=== PATIENT | female | born 1980 | race Caucasian/White ===

== ENCOUNTER 2016-09-18 03:51 | Emergency (ER) | payer OTHER ==
[~2016-09-18] VITALS: Ht 170.2 cm; Wt 104.3 kg
[2016-09-18 03:57] VITALS: BP 152/83
[2016-09-18] MEDS ORDERED: PROAIR HFA8.5 GM INH (04:14)
[2016-09-18] MEDS ORDERED: PRED15SO3 PO (04:14)
--- NOTE | 2016-09-18 04:14 | PHYS DOC ---
Past Medical History Past Medical History: Bronchitis, Pneumonia, Other Additional Past Medical Histor: INTESTINES BLOCKAGE Past Surgical History: No Surgical History Alcohol Use: Occasionally Drug Use: None Adult General Chief Complaint Chief Complaint: COUGH HPI HPI 36-year-old female presented to the emergency Department today with cough and nasal congestion of the last three days. She has sinus pain that is sharp non- radiating mild intermittent and mildly alleviated with Tylenol. Her cough is dry nonproductive. Review of Systems Review of Systems neg for fevers chills abdominal pain nausea vomiting diarrhea or constipation. Allergies Allergies Allergies Coded Allergies Type Severity Reaction Last Updated Verified Penicillins Allergy Severe SOA 12/21/15 Yes Physical Exam Physical Exam Constitutional: Well developed, well nourished, no acute distress, non-toxic appearance. HENT: Normocephalic, atraumatic, bilateral external ears normal, oropharynx moist, no oral exudates, nose normal. [] Eyes: PERRLA, EOMI, conjunctiva normal, no discharge. Neck: Normal range of motion, no tenderness, supple, no stridor. [] Cardiovascular:Heart rate regular rhythm, no murmur Lungs & Thorax: Bilateral breath sounds clear to auscultation [] Abdomen: Bowel sounds normal, soft, no tenderness, no masses, no pulsatile masses. Skin: Warm, dry, no erythema, no rash. [] Back: No tenderness, no CVA tenderness. [] Extremities: No tenderness, no cyanosis, no clubbing, ROM intact, no edema. Neurologic: Alert and oriented X 3, normal motor function, normal sensory function, no focal deficits noted. [] Psychologic: Affect normal, judgement normal, mood normal. [] Current Patient Data Vital Signs Vital Signs Date Time Temp Pulse Resp B/P Pulse Ox O2 Delivery O2 Flow Rate FiO2 09/18/16 03:57 98.5 96 20 97 Room Air 98.5 EKG EKG [] Radiology/Procedures Radiology/Procedures [] Course & Med Decision Making Course & Med Decision Making Pertinent Labs and Imaging studies reviewed. (See chart for details) []36-year-old female presenting with signs symptoms consistent with acute bronchitis and a post nasal drip with acute likely viral sinusitis. Patients provided with albuterol inhaler prednisone for symptomatic care. I recommended [id number] cough medication as needed. The patient was then discharged home fall the primary care physician over the next 3 to 5 days of her symptoms and not improve. Dragon Disclaimer Dragon Disclaimer This electronic medical record was generated, in whole or in part, using a voice recognition dictation system. Departure Departure Impression: Primary Impression: Bronchitis Disposition: 01 HOME, SELF-CARE Admitting Physician: Other Condition: STABLE Referrals: UNKNOWN PCP NAME (PCP) AUBREY MENG MD Patient Instructions: Acute Bronchitis, [id number], Sinusitis, [id number] Additional Instructions: Thank you for allowing us to participate in your care today. Followup with your primary care physician in 3 days if your symptoms do not improve. If you do not have a primary care provider you can ask for a list of our primary care providers. Return to the emergency department you have any new or concerning findings. This should be evaluated by the primary care physician and any necessary consulting services for continued management within a few days after discharge. Return to emergency room if you have any new or concerning symptoms including but not limited to fever, chills, nausea, vomiting, intractable pain, any new rashes, chest pain, shortness of air, uncontrolled bleeding, difficulty breathing, and/or vision loss. Scripts Prednisolone Sod Phosphate (Prednisolone Sodium Phosphate)15 Mg/5 Ml [id number] Mg PO DAILY 5 Days Prov:KELECHI AGUILAR MD 09/18/16 Albuterol Sulfate (Proair Hfa Inhaler)8.5 Gm [id number] Puff INH PRN Q6HRS PRN SHORTNESS OF BREATH #1 INHALER Prov:KELECHI AGUILAR MD 09/18/16 KELECHI AGUILAR MD Sep 18, 2016 04:14
== END 2016-09-18 04:22 | disposition home or self-care (01) ==
LOC: ER 03:51
DX: J40 Bronchitis, not specified as acute or chronic (principal); Z87.01 Personal history of pneumonia (recurrent); Z88.0 Allergy status to penicillin
CPT/HCPCS: 99283

== ENCOUNTER 2019-03-17 13:09 | Emergency (ER) | payer SELFPAY ==
[~2019-03-17] VITALS: Ht 167.6 cm; Wt 90.7 kg
[~2019-03-17 13:09] MED LIST: ALBU2.5V8 INH; PRED15SO3 PO
[2019-03-17 13:20] VITALS: BP 147/92
[2019-03-17] MEDS ORDERED: BACI3.5O8 OS (13:38)
--- NOTE | 2019-03-17 13:38 | PHYS DOC ---
Past Medical History Past Medical History: Bronchitis, Pneumonia, Other Additional Past Medical Histor: INTESTINES BLOCKAGE Past Surgical History: No Surgical History Alcohol Use: Occasionally Drug Use: None Adult General Chief Complaint Chief Complaint: BURN/SMOKE INHALATION [facility] HPI Patient is a 38 year old female who presents with was working Sunday when the edge of a hot lundy burned her left mid forearm. The burn is approximately 7.5 cm long and is first-degree. There is a pencil eraser sized open blister the patient states popped on its own. She rates her burning pain a 8 out of 10. Patient states she has been putting Neosporin and mustard and ice on her burn. Review of Systems Review of Systems Constitutional: Denies fever or chills [] Eyes: Denies change in visual acuity, redness, or eye pain [] HENT: Denies nasal congestion or sore throat [] Respiratory: Denies cough or shortness of breath [] Cardiovascular: No additional information not addressed in HPI [] GI: Denies abdominal pain, nausea, vomiting, bloody stools or diarrhea [] : Denies dysuria or hematuria [] Musculoskeletal: Left forearm burn. Denies back pain or joint pain [] Integument: Denies rash or skin lesions [] Neurologic: Denies headache, focal weakness or sensory changes [] Endocrine: Denies polyuria or polydipsia [] All other systems were reviewed and found to be within normal limits, except as documented in this note. Allergies Allergies Allergies Coded Allergies Type Severity Reaction Last Updated Verified Penicillins Allergy Severe SOA 12/21/15 Yes Physical Exam Physical Exam Constitutional: Well developed, well nourished, no acute distress, non-toxic appearance. [] HENT: Normocephalic, atraumatic, bilateral external ears normal, oropharynx moist, no oral exudates, nose normal. [] Eyes: PERRLA, EOMI, conjunctiva normal, no discharge. [] Neck: Normal range of motion, no tenderness, supple, no stridor. [] Cardiovascular:Heart rate regular rhythm, no murmur [] Lungs & Thorax: Bilateral breath sounds clear to auscultation [] Abdomen: Bowel sounds normal, soft, no tenderness, no masses, no pulsatile masses. [] Skin: Left forearm first-degree burn with small open blister. Area of burn red. Warm, dry, no erythema, no rash. [] Back: No tenderness, no CVA tenderness. [] Extremities: No tenderness, no cyanosis, no clubbing, ROM intact, no edema. [] Neurologic: Alert and oriented X 3, normal motor function, normal sensory function, no focal deficits noted. [] Psychologic: Affect normal, judgement normal, mood normal. [] EKG EKG [] Radiology/Procedures Radiology/Procedures [] Course & Med Decision Making Course & Med Decision Making Patient is a 38 year old female who presents with was working Sunday when the edge of a hot lundy burned her left mid forearm. The burn is approximately 7.5 cm long and is first-degree. There is a pencil eraser sized open blister the patient states popped on its own. She rates her burning pain a 8 out of 10. Patient states she has been putting Neosporin and mustard and ice on her burn. The burn itself is superficial and is red without drainage. There is no streaking or signs of infection. Patient's vital signs within normal limits. Patient's Social Security covered and clean. I will write a prescription for bacitracin ointment. Patient did receive a tetanus shot in the ED today. Dragon Disclaimer Dragon Disclaimer This electronic medical record was generated, in whole or in part, using a voice recognition dictation system. Departure Departure Impression: Primary Impression: Burn Disposition: 01 HOME, SELF-CARE Condition: STABLE Referrals: UNKNOWN PCP NAME (PCP) Patient Instructions: Burn Care Additional Instructions: Keep the area clean and covered. Keep the ointment on it until it heals. Follow up with primary care if needed. Scripts Bacitracin (BACITRACIN) 3.5 Gm Oint...g. 1 NAYELI OS TID for 5 Days, #3.5 GM Prov: TWYLA STEWARD APRN 03/17/19 TWYLA STEWARD OPERATER Mar 17, 2019 13:38
[2019-03-17] MEDS ORDERED: DIPHTH,PERTUSS(ACELL),TET TOX 0.5 ML DISP.SYRIN. VAX IM ONE (14:15)
== END 2019-03-17 13:56 | disposition home or self-care (01) ==
LOC: ER 13:09
DX: T22.212A Burn of second degree of left forearm, initial encounter (principal); Z88.0 Allergy status to penicillin; X15.2XXA Contact with hotplate, initial encounter; Y93.89 Activity, other specified; Y92.89 Other specified places as the place of occurrence of the external cause; Y99.0 Civilian activity done for income or pay
CPT/HCPCS: 10060; 16020; 99283; 99284

== ENCOUNTER 2019-08-17 13:34 | Emergency (ER) | payer SELFPAY ==
[~2019-08-17] VITALS: Ht 167.6 cm; Wt 90.7 kg
[~2019-08-17 13:34] MED LIST changes: +BACI3.5O8 OS
[2019-08-17 14:00] VITALS: BP 150/91
[2019-08-17 14:14] LABS: BILIRUBIN,URINE MODERATE (NEG); CLARITY,URINE TURBID; COLOR,URINE RED; NITRITE,URINE POSITIVE (NEG); PH,URINE 7.5; PROTEIN,URINE >=300 mg/dL (NEG-TRACE)
[2019-08-17 14:26] LABS: BACTERIA,URINE FEW /HPF (0-FEW); RBC,URINE TNTC /HPF (0-2)
[2019-08-17 14:27] LABS: SQUAMOUS EPITHELIAL CELL,UR FEW /LPF
--- NOTE | 2019-08-17 14:27 | PHYS DOC ---
Past Medical History Past Medical History: Bronchitis, Pneumonia, UTI, Other Additional Past Medical Histor: STAPH INFECTIONS,INTESTINE BLOCKAGE Past Surgical History: No Surgical History Alcohol Use: Occasionally Drug Use: None Adult General Chief Complaint Chief Complaint: PAIN ON URINATION HPI HPI Patient is a 39 year old Female who presents with low mid bladder pain that hurts especially after she urinates and urinary urgency for the last 2 days. Patient states at times she is pink and sure urine. Patient denies any pain at this time. Patient states it's mainly after she finishes her stream. Patient denies burning with urination she states she feels the pain in her bladder. Review of Systems Review of Systems GI: low mid abdominal pain, denies nausea, vomiting, bloody stools or diarrhea [] : dysuria or hematuria [] All other systems were reviewed and found to be within normal limits, except as documented in this note. Allergies Allergies Allergies Coded Allergies Type Severity Reaction Last Updated Verified Penicillins Allergy Severe SOA 12/21/15 Yes Physical Exam Physical Exam Constitutional: Well developed, well nourished, no acute distress, non-toxic appearance. [] HENT: Normocephalic, atraumatic, bilateral external ears normal, oropharynx moist, no oral exudates, nose normal. [] Eyes: PERRLA, EOMI, conjunctiva normal, no discharge. [] Neck: Normal range of motion, no tenderness, supple, no stridor. [] Cardiovascular:Heart rate regular rhythm, no murmur [] Lungs & Thorax: Bilateral breath sounds clear to auscultation [] Abdomen: Bowel sounds normal, soft, no tenderness, no masses, no pulsatile mass es. [] Skin: Warm, dry, no erythema, no rash. [] Back: No tenderness, no CVA tenderness. [] Extremities: No tenderness, no cyanosis, no clubbing, ROM intact, no edema. [] Neurologic: Alert and oriented X 3, normal motor function, normal sensory function, no focal deficits noted. [] Psychologic: Affect normal, judgement normal, mood normal. Normal physical exam[] Current Patient Data Vital Signs Vital Signs Date Time Temp Pulse Resp B/P (MAP) Pulse Ox O2 Delivery O2 Flow Rate FiO2 08/17/19 14:00 98.7 79 16 150/91 (110) 97 Room Air 98.7 Lab Values Laboratory Tests Test 08/17/19 13:38 Urine Collection Type Void Urine Color Red Urine Clarity Turbid Urine pH 7.5 Urine Specific [place] 1.025 Urine Protein >=300 mg/dL (NEG-TRACE) Urine Glucose (UA) Negative mg/dL (NEG) Urine Ketones (Stick) 15 mg/dL (NEG) Urine Blood Large (NEG) Urine Nitrite Positive (NEG) Urine Bilirubin Moderate (NEG) Urine Urobilinogen Dipstick 1.0 mg/dL (0.2 mg/dL) Urine Leukocyte Esterase Large (NEG) Urine RBC Tntc /HPF (0-2) Urine WBC 5-10 /HPF (0-4) Urine Squamous Epithelial Cells Few /LPF Urine Bacteria Few /HPF (0-FEW) EKG EKG [] Radiology/Procedures Radiology/Procedures [] Course & Med Decision Making Course & Med Decision Making Denies fevers, continuos abdominal pain, back pain, constipation, diarrhea, and nausea, vomiting. Alert and oriented. Speaks in full clear sentences. Patient states she has been taking Azo a friend gave her to help her with her symptoms. Ambulatory with steady gait. Abdomen is soft and nontender. No CVA tenderness. Patient states that even though she is allergic to penicillin she has taken Rocephin's before and has no allergic reaction. Urinalysis shows infection.[] Dragon Disclaimer Dragon Disclaimer This electronic medical record was generated, in whole or in part, using a voice recognition dictation system. Departure Departure Impression: Primary Impression: UTI (urinary tract infection) Disposition: 01 HOME, SELF-CARE Condition: STABLE Referrals: UNKNOWN PCP NAME (PCP) Patient Instructions: Urinary Tract Infection Additional Instructions: Take medications as prescribed. Drink a lot of fluid. Follow-up with primary care doctor. Scripts Phenazopyridine Hcl (PYRIDIUM) 100 Mg Tablet 1 TAB PO TID for urinary discomfort for 3 Days, #9 TAB 0 Refills Prov: TWYLA STEWARD APRN 08/17/19 Cephalexin (KEFLEX) 500 Mg Capsule 1 CAP PO BID for 7 Days, #14 CAP 0 Refills Prov: TWYLA STEWARD SOFTWARE CONFIGURATION MANAGER 08/17/19 Problem Qualifiers Primary Impression: UTI (urinary tract infection) Urinary tract infection type: site unspecified Hematuria presence: with hematuria Qualified Codes: N39.0 - Urinary tract infection, site not specified; R31.9 - Hematuria, unspecified TWYLA STEWARD SOFTWARE CONFIGURATION MANAGER Aug 17, 2019 14:27
[2019-08-17] MEDS ORDERED: CEPH-264 PO (14:37)
[2019-08-17] MEDS ORDERED: PHEN100T82 PO (14:37)
== END 2019-08-17 14:57 | disposition home or self-care (01) ==
LOC: ER 13:34
DX: N39.0 Urinary tract infection, site not specified (principal); Z88.0 Allergy status to penicillin
CPT/HCPCS: 81001; 87086; 99284

== ENCOUNTER 2020-12-30 15:52 | Emergency (ER) | payer OTHER ==
[~2020-12-30] VITALS: Ht 167.6 cm; Wt 104.5 kg
[~2020-12-30 15:52] MED LIST changes: +CEPH-264 PO; +PHEN100T82 PO
[2020-12-30] MEDS ORDERED: SULF1TAB24 PO (16:28)
--- NOTE | 2020-12-30 16:29 | PHYS DOC ---
Past Medical History Past Medical History: No Pertinent History, Bronchitis, Pneumonia, UTI, Other Additional Past Medical Histor: STAPH INFECTIONS,INTESTINE BLOCKAGE Past Surgical History: No Surgical History Smoking Status: Former Smoker Alcohol Use: Occasionally Drug Use: None General Adult EDM: Chief Complaint: FINGER INJURY HPI: HPI: Patient is a 40 year old female who presents the ED today with right middle finger, symptoms began a week ago. Patient states she has been soaking the finger in warm water with Epsom salt, she states she has noted some drainage. Denies any fever. Review of Systems: Review of Systems: Constitutional: Denies fever or chills. [] Musculoskeletal: Denies back pain or joint pain. [] Integument: Reports right middle finger infection Neurologic: Denies headache, focal weakness or sensory changes. [] Psychiatric: Denies depression or anxiety. [] Heart Score: C/O Chest Pain: N/A Risk Factors: Risk Factors: DM, Current or recent (<one month) smoker, HTN, HLP, family history of CAD, obesity. Risk Scores: Score 0 - 3: 2.5% MACE over next 6 weeks - Discharge Home Score 4 - 6: 20.3% MACE over next 6 weeks - Admit for Clinical Observation Score 7 - 10: 72.7% MACE over next 6 weeks - Early Invasive Strategies Allergies: Allergies: Allergies Coded Allergies Type Severity Reaction Last Updated Verified Penicillins Allergy Severe SOA 12/21/15 Yes Physical Exam: PE: Constitutional: Well developed, well nourished, no acute distress, non-toxic appearance. [] Skin: Right middle finger nailbed especially on the ulnar aspect with small amount of swelling and redness, there is trace drainage which I expressed in the ED and small amount of pus and blood came out. The finger is warm tender to touch. +2 right pedal radial pulse. Cap refill less than 2 seconds to right ring finger. Back: No tenderness, no CVA tenderness. [] Extremities: No tenderness, no cyanosis, no clubbing, ROM intact, no edema. [] Neurologic: Alert and oriented X 3, normal motor function, normal sensory function, no focal deficits noted. [] Psychologic: Affect normal, judgement normal, mood normal. [] Current Patient Data: Vital Signs: Vital Signs Date Time Temp Pulse Resp B/P (MAP) Pulse Ox O2 Delivery O2 Flow Rate FiO2 12/30/20 16:06 98.3 82 16 115/84 (94) 98 Room Air 98.3 EKG: EKG: [] Radiology/Procedures: Radiology/Procedures: [] Course & Med Decision Making: Course & Med Decision Making Pertinent Labs and Imaging studies reviewed. (See chart for details) This is a 40-year-old female patient presented to the ED today with paronychia infection. Discharged on Bactrim. Tetanus updated. The finger is already draining. Return precautions provided. Dragon Disclaimer: Dragon Disclaimer: This electronic medical record was generated, in whole or in part, using a voice recognition dictation system. Departure Departure Impression: Primary Impression: Paronychia of finger Qualified Codes: L03.011 - Cellulitis of right finger Disposition: 01 HOME / SELF CARE / HOMELESS Condition: STABLE Referrals: UNKNOWN PCP NAME (PCP) follow up with your doctor in 1 week Patient Instructions: Paronychia, [id number] Additional Instructions: You have paronychia infection to the right middle finger. Please take the prescribed antibiotics until completed. Continue soaking your finger in warm water with Epson salt twice a day and draining it. Follow-up with your doctor in a week, come back to the ED at any point symptoms worsen Scripts Sulfamethoxazole/Trimethoprim (BACTRIM DS TABLET) 1 Each Tablet 1 TAB PO BID for 10 Days, #20 TAB 0 Refills Prov: EARL FLORENTINO APRN 12/30/20 EARL FLORENTINO APRN Dec 30, 2020 16:29
[2020-12-30 16:40] VITALS: BP 117/82
[2020-12-30] MEDS: DIPH,PERTUSS(ACELL),TET VAC/PF 0.5 ML SYRINGE. VAX IM ONE (16:43)
== END 2020-12-30 16:52 | disposition home or self-care (01) ==
LOC: ER 15:52
DX: L03.011 Cellulitis of right finger (principal); L08.89 Other specified local infections of the skin and subcutaneous tissue; Z87.891 Personal history of nicotine dependence; Z98.890 Other specified postprocedural states; Z88.0 Allergy status to penicillin
CPT/HCPCS: 90471; 90715; 99283